=== PATIENT | male | born 1970 | race Caucasian/White ===

== ENCOUNTER 2016-04-26 10:21 | Emergency (ER) | payer SELFPAY ==
[~2016-04-26 10:21] MED LIST: Sodium Chloride Irrig Solution 250 ML BOT ONE
[2016-04-26] MEDS ORDERED: Lidocaine 1% w/Epinephrine 1:100K 20 ML VIAL ONE (10:37)
[2016-04-26] MEDS ORDERED: Acetaminophen/Codeine 30-300mg Tablet ONE (10:51)
--- NOTE | 2016-04-26 12:25 | ERRECORD ---
[facility] EMERGENCY RECORD HPI GENERAL CHIEF COMPLAINT: Patient presents for evaluation of LEFT LOWER LIP SWOLLEN, PAINFUL AND POSSIBLE INFECTION. (11:08 LHOD) HISTORIAN: History provided by patient. (11:08 LHOD) MECHANISM OF INJURY: NONE. (11:11 LHOD) LOCATION: LEFT LOWER LIP. (11:11 LHOD) QUALITY: Pain is sharp in nature, BURNING. (11:11 LHOD) SEVERITY: Maximum severity of symptoms severe, Currently symptoms are severe, Maximum severity of pain rated as 10/10, Current severity of pain rated as 10/10. (11:11 LHOD) TIME COURSE: 4 DAYS AGO PT REPORTS HE HAD A "PIMPLE" ON HIS LEFT LOWER LIP. HE WAS SEEN IN [place] AND STARTED ON 2 ANTIBIOTICS---KEFLEX AND AMOXIL, ALTHOUGH PT REPORTS ALLERGY TO PENICILLEN. DENIES ANY TRAUMA. PAIN AND SWELLING OF LEFT LOWER LIP INCREASING. (11:08 LHOD) ASSOCIATED WITH: Associated with SWELLING OF LEFT LOWER LIP. (11:12 LHOD) ROS (12:40 LHOD) CONSTITUTIONAL: Historian denies fever. ENT: Historian denies dysphagia, denies sore throat. MARKED SWELLING OF LOWER LIP. CARDIOVASCULAR: Historian denies chest pain. RESPIRATORY: Historian denies shortness of breath. GI: Historian denies abdominal pain, denies vomiting. MUSCULOSKELETAL: Historian denies back pain, denies neck pain. SKIN: LEFT LOWER LIP SWELLING / DRAINAGE. NEUROLOGIC: Historian denies headache. HEMO/LYMPHATIC: Historian denies easy bruising. NOTES: All systems reviewed, negative except as described above. PAST MEDICAL HISTORY MEDICAL HISTORY: Flu vaccine not up to date, Tetanus immunization up to date, Date of immunization- 4 or 5 months ago. Pneumococcal vaccine not up to date, MRSA, DEGENERATIVE EYE DISEASE. (10:35 AWAT) Notes: VERIFIED 04-26-16, Flu vaccine not up to date, Tetanus immunization up to date, Date of immunization: 3 YEARS AGO, Pneumococcal vaccine not up to date, No past medical history, No past medical history. (10:44 JPER) MALE SURGICAL HISTORY: SURGERY TO RT ARM. (10:35 AWAT) VERIFIED 04-26-16, SURGERY TO RT ARM. (10:44 JPER) PSYCHIATRIC HISTORY: Notes: DENIES. (10:35 AWAT) Notes: DENIES, Notes: DENIES. (10:44 JPER) SOCIAL HISTORY: Patient denies alcohol use, Patient is a former drug user, abused methamphetamines, Drug history notes: LAST USED 9 MONTHS, Patient currently uses tobacco, smokes cigarettes, daily, Patient smokes 1/2 packs per day, Lives at home, with family. (10:35 AWAT) &a-1R&a+25V*p+0X*b2006E*c202B*c15G*c2P*p-0X&a-25V&a+1R Name: Byron Goodman : 1970 M45 MedRec: [id number] AcctNum: [id number] Prepared: SunApr 26, 2016 12:53 by Interface Page 1 of 3 pMD [facility] EMERGENCY RECORD Social History includes VERIFIED 04-26-16, Patient denies alcohol use, Patient is a former drug user, abused methamphetamines, Drug history notes: LAST USED 9 MONTHS, Patient currently uses tobacco, smokes cigarettes, daily, Patient smokes 1/2 packs per day, Lives at home, with family. 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 (12:46 LHOD) KNOWN ALLERGIES Penicillins: Reaction: Anaphylaxis CURRENT MEDICATIONS Keflex: CAPSULE : Strength - 500 mg : ORAL Patient Dose: 4 times a day. (10:41 AWAT) PT ALSO SAYS HE IS TAKING SOME LEFTOVER AMOXICILLIN (10:43 AWAT) VITAL SIGNS VITAL SIGNS: BP: 140/88, Pulse: 88, Resp: 18, Temp: 98.6 (Tympanic), O2 sat: 96 on Room Air, Time: 04/26/2016 10:30. (10:30 AWAT) BP: 148/95, Pulse: 90, Resp: 18, Temp: 98.6 (Tympanic), O2 sat: 97 on Room Air, Time: 04/26/2016 10:35. (10:35 JPER) BP: 135/83, Pulse: 82, Resp: 16, Temp: 98.6, Pain: 4, O2 sat: 98 on RA, Time: 04/26/2016 12:10. (12:10 AWAT) PHYSICAL EXAM (12:41 LHOD) CONSTITUTIONAL: Vital signs reviewed, Patient afebrile, Pulse normal, Blood pressure normal, Respiratory rate normal, Patient appears in pain, in severe pain distress, Patient alert and oriented to person, place and time. EYES: Pupils equally round and reactive to light, Extraocular muscles intact. ENT: Pharynx exam normal, LOWER LIP WITH LARGE AMOUNT OF SWELLING. LEFT LOWER MUCOSAL 5 MM PROTRUDING WHITE / YELLOW EXUDATE. NECK: Neck exam included findings of normal range of motion, Trachea midline. RESPIRATORY CHEST: Respiratory exam included findings of no respiratory distress, Breath sounds clear. NEURO: Neuro exam findings include patient oriented to person, place and time. SKIN: LOWER LIP WITH MARKED SWELLING . 5MM LEFT LOWER LIP MUCOSAL WHITE / YELLOW EXUDATE. LIP SO TENSELY SWOLLEN UNABLE TO IDENTIFY FLUCTUANCE. MEDICATION ADMINISTRATION SUMMARY Drug Name: clindamycin injection, Dose Ordered: 300 mg, Route: IV Push, Status: Given, Time: 11:08 04/26/2016, &a-1R&a+25V*p+0X*r8314L*c202B*c15G*c2P*p-0X&a-25V&a+1R Name: Byron Goodman : 1970 M45 MedRec: [id number] AcctNum: [id number] Prepared: SunApr 26, 2016 12:53 by Interface Page 2 of 3 pMD [facility] EMERGENCY RECORD Drug Name: Tylenol-Codeine #3, Dose Ordered: 2 tab(s), Route: Oral, Status: Given, Time: 11:00 04/26/2016, Detailed record available in Medication Service section. PROBLEM LIST No recorded problems DIAGNOSIS (11:50 LHOD) FINAL: PRIMARY: LEFT LOWER LIP SUPERFICIAL ABSCESS WITH CELLULITIS. PRESCRIPTION (11:50 LHOD) Cleocin capsule: CAPSULE (HARD, SOFT, ETC.) : 300 mg : ORAL : Quantity: 1 Unit: tab(s) Route: ORAL Schedule: 4 times a day Dispense: 28 May substitute. Refills: No Refills . NOTES: No Refills. Tylenol-Codeine #3: TABLET : 300 mg-30 mg : ORAL : Quantity: 1-2 Unit: tab(s) Route: ORAL Schedule: every 4 hours prn Dispense: 10 May substitute. Refills: No Refills . NOTES: ^s=No Refills No Refills. DISPOSITION PATIENT: Disposition Type: Discharge, Disposition: *Discharge Home, Condition: Good. (11:50 LHOD) Patient left the department. (12:17 AWAT) Ely: AWAT=BHAVNA Carney, Judd JPER=BHAVNA Landry, Yolette LHOD=MD Rancho, Jessika &a-1R&a+25V*p+0X*b1973E*c202B*c15G*c2P*p-0X&a-25V&a+1R Name: MaxineByron : 1970 M45 MedRec: [id number] AcctNum: [id number] Prepared: SunApr 26, 2016 12:53 by Interface Page 3 of 3 pMD MTDD
--- NOTE | 2016-04-26 12:30 | PICIS ---
[facility] EMERGENCY RECORD TRIAGE (10:32 AWAT) TRIAGE NOTES: LOWER LIP INFECTION X 4 DAYS. WAS SEEN IN [place] 2 DAYS AGO & PUT ON ABX X 2, BUT CANNOT RECALL WHAT THEY ARE. HE SAYS IT SEEMS LIKE IT'S GETTING WORSE. (10:32 AWAT) PATIENT: NAME: Byron Goodman, AGE: 45, GENDER: male, : Sat 1970, TIME OF GREET: SunApr 26, 2016 10:22, PREFERRED LANGUAGE: Serbian, ETHNICITY: Not or , ECODE BILLING MAP: [facility], SSN: [id number], Zip Code: [address], KG WEIGHT: 81.65 (est.), PHONE: , , , PERSON ID: [id number], PCP: NONE. (10:32 AWAT) COMPLAINT: LIP BLEEDING. (10:32 AWAT) ADMISSION: URGENCY: 4 Non Urgent, ADMISSION SOURCE: Home, TRANSPORT: Walk-in, BED: ED -05. (10:32 AWAT) ASSESSMENT: Assessment: LOWER LEFT LIP SWOLLEN; OOZING. (10:44 JPER) PAIN: Location UNCOMFORTABLE. (10:44 JPER) SIRS SCORING: Heart Rate 55-109 (0), Temp range 96.8-101.1 (0), respiratory rate 12-24 (0), Mental Status altered: no (0). (10:35 AWAT) IMMUNIZATIONS: Flu vaccine not up to date, Tetanus immunization up to date, Pneumococcal vaccine not up to date. (10:44 JPER) SIRS SCORING: Heart Rate 55-109 (0), Temp range 96.8-101.1 (0), respiratory rate 12-24 (0), Mental Status altered: no (0). (10:44 JPER) TRIAGE SCREENING: Patient denies suicidal ideation, Patient denies presence of domestic violence. (10:44 JPER) PROVIDERS: TRIAGE NURSE: Judd Carney RN. (10:32 AWAT) VITAL SIGNS: BP 140/88, Pulse 88, Resp 18, Temp 98.6, (Tympanic), O2 Sat 96, on Room Air, Time 04/26/2016 10:30. (10:30 AWAT) BP 148/95, Pulse 90, Resp 18, Temp 98.6, (Tympanic), O2 Sat 97, on Room Air, Time 04/26/2016 10:35. (10:35 JPER) PREVIOUS VISIT ALLERGIES: Penicillins. (10:32 AWAT) Penicillins. (10:35 AWAT) Penicillins. (10:44 JPER) KNOWN ALLERGIES Penicillins: Reaction: Anaphylaxis CURRENT MEDICATIONS Keflex: CAPSULE : Strength - 500 mg : ORAL Patient Dose: 4 times a day. (10:41 AWAT) PT ALSO SAYS HE IS TAKING SOME LEFTOVER AMOXICILLIN (10:43 AWAT) VITAL SIGNS VITAL SIGNS: BP: 140/88, Pulse: 88, Resp: 18, Temp: 98.6 (Tympanic), O2 sat: 96 on Room Air, Time: 04/26/2016 10:30. (10:30 AWAT) &a-1R&a+25V*p+0X*o6949S*c202B*c15G*c2P*p-0X&a-25V&a+1R Name: Byron Goodman : 1970 M45 MedRec: [id number] AcctNum: [id number] Prepared: SunApr 26, 2016 12:58 by Interface Page 1 of 7 pMD [facility] EMERGENCY RECORD BP: 148/95, Pulse: 90, Resp: 18, Temp: 98.6 (Tympanic), O2 sat: 97 on Room Air, Time: 04/26/2016 10:35. (10:35 JPER) BP: 135/83, Pulse: 82, Resp: 16, Temp: 98.6, Pain: 4, O2 sat: 98 on RA, Time: 04/26/2016 12:10. (12:10 AWAT) NURSING ASSESSMENT: FOCUSED (10:40 AWAT) CONSTITUTIONAL: Simple assessment performed, Patient arrives ambulatory, Gait steady, History obtained from patient, Patient appears comfortable, Patient cooperative, Patient alert, Oriented to person, place and time, Skin warm, Skin dry, Skin normal in color, Mucous membranes pink, Mucous membranes moist, Patient complains of LOWER LIP INFECTION. PAIN: aching pain, constant, on a scale 0-10 patient rates pain as 10, Pain exacerbated by, palpation, pressure, Nothing has been tried to alleviate the pain. EYES: Focused eye assessment finding include pupils equally round and reactive to light, Left pupil 4 mm in size, Right pupil 4 mm in size. NEURO: Focused neuro assessment findings include patient alert, cooperative, No facial droop noted, Notes: WNL. RESPIRATORY: Focused respiratory assessment findings include breath sounds clear, to bilateral upper lobes, to the right middle lobe, to bilateral lower lobes. ABDOMEN: Focused abdominal assessment findings include abdomen soft, non tender, Bowel sounds present. GENITOURINARY: Focused genitourinary assessment not applicable. MUSCULOSKELETAL: Notes: WNL. LACERATION: Focused laceration assessment not applicable. NOTES: Patient tolerated procedure well, Notes: LOWER LIP SWOLLEN/INFLAMMED, AND A SMALL OPEN AREA NOTED. RECENTLY SEEN IN [place] FOR THIS. SAFETY: Side rails up, Cart/Stretcher in lowest position, Call light within reach, Hospital ID band on, Notes: PT HERE ALONE, BUT SAYS A FRIEND BROUGHT HIM & WILL COME BACK TO GET HIM., Physician notified of above findings. NURSING PROCEDURE: BEDSIDE TESTING (11:10 AWAT) PATIENT IDENTIFIER: Patient actively involved in identification process, Patient's identity verified by patient stating name, Patient's identity verified by patient stating date, Patient's identity verified by hospital ID bracelet. GLUCOSE: Capillary blood sample, Result (mg/dl) 137. FOLLOW-UP: After procedure, results given to Dr. vickers. SAFETY: Side rails up, Cart/Stretcher in lowest position, Call light within reach, Hospital ID band on, Physician notified of above findings. NURSING PROCEDURE: DISCHARGE NOTE (12:10 AWAT) DISCHARGE: Patient discharged to home, ambulating without &a-1R&a+25V*p+0X*d4144X*c202B*c15G*c2P*p-0X&a-25V&a+1R Name: Byron Goodman Armando : 1970 M45 MedRec: [id number] AcctNum: [id number] Prepared: SunApr 26, 2016 12:58 by Interface Page 2 of 7 pMD [facility] EMERGENCY RECORD assistance, family driving, accompanied by other family member, Summary of Care printed/ provided, Patient requested and was provided an electronic copy of Discharge Instructions, Discharge instructions given to patient, Discharge instructions given to NEICE, Simple or moderate discharge teaching performed, by ANTONIO RN, Prescriptions given and instructions on side effects given, Name of prescription(s) given: TYLENOL W CDN, CLEOCIN, Above person(s) verbalized understanding of discharge instructions and follow-up care, Patient discharged by, ANTONIO RN, Patient treated and evaluated by physician. BELONGINGS: Belongings remain with patient, Valuables remain with patient. NOTES: Patient tolerated procedure well. SAFETY: Side rails up, Cart/Stretcher in lowest position, Family at bedside, Call light within reach, Hospital ID band on, Physician notified of above findings. VITAL SIGNS: BP: 135, / 83, Pulse: 82, Resp: 16, Temp: 98.6, Pain: 4, O2 sat: 98, on: RA, Time: 1210. NURSING PROCEDURE: IV PATIENT IDENITIFIER: Patient actively involved in identification process, Patient's identity verified by patient stating name, Patient's identity verified by patient stating date, Patient's identity verified by hospital ID bracelet. (11:05 AWAT) IV SITE 1: IV therapy indicated for medication administration, IV established, to the left hand, using a 20 gauge catheter, in three attempts, IV site prepped with chloraprep, Saline lock established, Flushed with normal saline (mls): 10. (11:05 AWAT) FOLLOW-UP SITE 1: After procedure, sterile transparent dressing applied. (11:05 AWAT) After procedure, 2x2 dressing applied, IV discontinued, due to patient being discharged, catheter intact. (12:00 AWAT) NOTES: Patient tolerated procedure well. (11:05 AWAT) SAFETY: Side rails up, Cart/Stretcher in lowest position, Call light within reach, Hospital ID band on, Physician notified of above findings. (11:05 AWAT) ORDER DETAILS Order Name: Accucheck, Status: Done, Time: 11:15 04/26/2016, User: JUANA, - Ordered for: MD Vickers Lefayne, - Entered by: MD Vickers Lefayne - SunApr 26, 2016 10:49, - Quantity: 1, Order Name: DRESSING APPLICATION/CHANGE, Status: Done, Time: 12:02 04/26/2016, User: AWAT, - Ordered for: MD Vickers Lefayne, - Entered by: MD Vickers Lefayne - SunApr 26, 2016 11:49, - Quantity: 1, Order Name: SALINE LOCK, Status: Done, Time: 11:15 04/26/2016, User: &a-1R&a+25V*p+0X*f7063Q*c202B*c15G*c2P*p-0X&a-25V&a+1R Name: Byron Goodman : 1970 M45 MedRec: [id number] AcctNum: [id number] Prepared: SunApr 26, 2016 12:58 by Interface Page 3 of 7 pMD [facility] EMERGENCY RECORD AWAT, - Ordered for: MD Vickers Lefayne, - Entered by: MD Vickers Lefayne - SunApr 26, 2016 10:48, - Quantity: 1. MEDICATION ADMINISTRATION SUMMARY Drug Name: clindamycin injection, Dose Ordered: 300 mg, Route: IV Push, Status: Given, Time: 11:08 04/26/2016, Drug Name: Tylenol-Codeine #3, Dose Ordered: 2 tab(s), Route: Oral, Status: Given, Time: 11:00 04/26/2016, Detailed record available in Medication Service section. MEDICATION SERVICE clindamycin injection: Order: clindamycin injection (clindamycin phosphate) - Dose: 300 mg : IV Push Ordered by: Jessika Vickers MD Entered by: Jessika Vickers MD SunApr 26, 2016 10:48 , Acknowledged by: Judd Carney RN SunApr 26, 2016 10:50 Documented as given by: Judd Carney RN SunApr 26, 2016 11:08 Patient, Medication, Dose, Route and Time verified prior to administration. Amount given: 300mg, IV SITE #1 IV fluids established for hydration, IV SITE #1 1st bag hung, amount 50ml hung, via primary tubing, IV SITE #1 on IV pump, Catheter placement confirmed via flush prior to administration, IV site without signs or symptoms of infiltration during medication administration, No swelling during administration, No drainage during administration, IV flushed after administration, Correct patient, time, route, dose and medication confirmed prior to administration, Patient advised of actions and side-effects prior to administration, Allergies confirmed and medications reviewed prior to administration, Administered by antonoi rn, Patient in position of comfort, Side rails up, Cart in lowest position. : Follow Up : Response assessment performed, No signs or symptoms of allergic reaction noted, Site inspection shows, No swelling at administration site, No drainage at administration site, No bleeding at site, No bruising noted at site, _IV SITE #1:_, Medication infusion discontinued, on SunApr 26, 2016 11:30, 25 minutes, ., Total amount infused: 300MG, IV Line flushed after administration, Advised not to ambulate without assistance, Patient in position of comfort, Side rails up, Cart in lowest position. (11:35 AWAT) Tylenol-Codeine #3: Order: Tylenol-Codeine #3 (acetaminophen/codeine phosphate) - Dose: 2 tab(s) : Oral Ordered by: Jessika Vickers MD Entered by: Jessika Vickers MD SunApr 26, 2016 10:49 , Acknowledged by: Judd Carney RN SunApr 26, 2016 10:50 Documented as given by: Judd Carney RN SunApr 26, 2016 11:00 Patient, Medication, Dose, Route and Time verified prior to administration. &a-1R&a+25V*p+0X*m9083S*c202B*c15G*c2P*p-0X&a-25V&a+1R Name: Byron Goodman : 1970 M45 MedRec: [id number] AcctNum: [id number] Prepared: SunApr 26, 2016 12:58 by Interface Page 4 of 7 pMD [facility] EMERGENCY RECORD Amount given: 2 tabs, Site: Medication administered P.O., Correct patient, time, route, dose and medication confirmed prior to administration, Patient advised of actions and side-effects prior to administration, Allergies confirmed and medications reviewed prior to administration, Administered by antonio godinez, Patient in position of comfort, Side rails up, Cart in lowest position, Family at bedside. HPI GENERAL CHIEF COMPLAINT: Patient presents for evaluation of LEFT LOWER LIP SWOLLEN, PAINFUL AND POSSIBLE INFECTION. (11:08 LHOD) HISTORIAN: History provided by patient. (11:08 LHOD) MECHANISM OF INJURY: NONE. (11:11 LHOD) LOCATION: LEFT LOWER LIP. (11:11 LHOD) QUALITY: Pain is sharp in nature, BURNING. (11:11 LHOD) SEVERITY: Maximum severity of symptoms severe, Currently symptoms are severe, Maximum severity of pain rated as 10/10, Current severity of pain rated as 10/10. (11:11 LHOD) TIME COURSE: 4 DAYS AGO PT REPORTS HE HAD A "PIMPLE" ON HIS LEFT LOWER LIP. HE WAS SEEN IN [place] AND STARTED ON 2 ANTIBIOTICS---KEFLEX AND AMOXIL, ALTHOUGH PT REPORTS ALLERGY TO PENICILLEN. DENIES ANY TRAUMA. PAIN AND SWELLING OF LEFT LOWER LIP INCREASING. (11:08 LHOD) ASSOCIATED WITH: Associated with SWELLING OF LEFT LOWER LIP. (11:12 LHOD) ROS (12:40 LHOD) CONSTITUTIONAL: Historian denies fever. ENT: Historian denies dysphagia, denies sore throat. MARKED SWELLING OF LOWER LIP. CARDIOVASCULAR: Historian denies chest pain. RESPIRATORY: Historian denies shortness of breath. GI: Historian denies abdominal pain, denies vomiting. MUSCULOSKELETAL: Historian denies back pain, denies neck pain. SKIN: LEFT LOWER LIP SWELLING / DRAINAGE. NEUROLOGIC: Historian denies headache. HEMO/LYMPHATIC: Historian denies easy bruising. NOTES: All systems reviewed, negative except as described above. PAST MEDICAL HISTORY MEDICAL HISTORY: Flu vaccine not up to date, Tetanus immunization up to date, Date of immunization- 4 or 5 months ago. Pneumococcal vaccine not up to date, MRSA, DEGENERATIVE EYE DISEASE. (10:35 AWAT) Notes: VERIFIED 04-26-16, Flu vaccine not up to date, Tetanus immunization up to date, Date of immunization: 3 YEARS AGO, Pneumococcal vaccine not up to date, No past medical history, No past medical history. (10:44 JPER) MALE SURGICAL HISTORY: SURGERY TO RT ARM. (10:35 AWAT) VERIFIED 04-26-16, SURGERY TO RT ARM. (10:44 JPER) &a-1R&a+25V*p+0X*n0725U*c202B*c15G*c2P*p-0X&a-25V&a+1R Name: Byron Goodman : 1970 M45 MedRec: [id number] AcctNum: [id number] Prepared: SunApr 26, 2016 12:58 by Interface Page 5 of 7 pMD [facility] EMERGENCY RECORD PSYCHIATRIC HISTORY: Notes: DENIES. (10:35 AWAT) Notes: DENIES, Notes: DENIES. (10:44 JPER) SOCIAL HISTORY: Patient denies alcohol use, Patient is a former drug user, abused methamphetamines, Drug history notes: LAST USED 9 MONTHS, Patient currently uses tobacco, smokes cigarettes, daily, Patient smokes 1/2 packs per day, Lives at home, with family. (10:35 AWAT) Social History includes VERIFIED 04-26-16, Patient denies alcohol use, Patient is a former drug user, abused methamphetamines, Drug history notes: LAST USED 9 MONTHS, Patient currently uses tobacco, smokes cigarettes, daily, Patient smokes 1/2 packs per day, Lives at home, with family. 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 (12:46 LHOD) PHYSICAL EXAM (12:41 LHOD) CONSTITUTIONAL: Vital signs reviewed, Patient afebrile, Pulse normal, Blood pressure normal, Respiratory rate normal, Patient appears in pain, in severe pain distress, Patient alert and oriented to person, place and time. EYES: Pupils equally round and reactive to light, Extraocular muscles intact. ENT: Pharynx exam normal, LOWER LIP WITH LARGE AMOUNT OF SWELLING. LEFT LOWER MUCOSAL 5 MM PROTRUDING WHITE / YELLOW EXUDATE. NECK: Neck exam included findings of normal range of motion, Trachea midline. RESPIRATORY CHEST: Respiratory exam included findings of no respiratory distress, Breath sounds clear. NEURO: Neuro exam findings include patient oriented to person, place and time. SKIN: LOWER LIP WITH MARKED SWELLING . 5MM LEFT LOWER LIP MUCOSAL WHITE / YELLOW EXUDATE. LIP SO TENSELY SWOLLEN UNABLE TO IDENTIFY FLUCTUANCE. EVENTS TRANSFER: Triage to Emergency Main ED -05. (10:33 AWAT) Removed from Emergency Main ED -05. (12:17 AWAT) INCISION AND DRAINAGE (12:47 LHOD) INCISION AND DRAINAGE: Side and/or site verified, Verbal consent obtained, Incision and drainage indicated for cutaneous abscess, 1% Lidocaine with epinephrine used, 2 mLs, Incision and drainage of mouth abscess, Incision was made over area of fluctuance, Explored for loculations, Drained blood, 11 SCALPEL TO MAKE 5 MM INCISION OVER AREA OF DRAINAGE. ONLY SMALL AMOUNT OF BLOOD DRAINED. PROBED FOR LOCULATION, BUT NO PURULENT DISCHARGE. NO PACKING REQUIRED. PROBLEM LIST No recorded problems &a-1R&a+25V*p+0X*v3899I*c202B*c15G*c2P*p-0X&a-25V&a+1R Name: Byron Goodman : 1970 M45 MedRec: [id number] AcctNum: [id number] Prepared: SunApr 26, 2016 12:58 by Interface Page 6 of 7 pMD [facility] EMERGENCY RECORD DIAGNOSIS (11:50 LHOD) FINAL: PRIMARY: LEFT LOWER LIP SUPERFICIAL ABSCESS WITH CELLULITIS. DISPOSITION PATIENT: Disposition Type: Discharge, Disposition: *Discharge Home, Condition: Good. (11:50 LHOD) Patient left the department. (12:17 AWAT) INSTRUCTION (11:51 LHOD) DISCHARGE: FACIAL CELLULITIS. FOLLOWUP: Follow up with Primary Care Physician in 1-2 days. SPECIAL: MAY COMPLETE KEFLEX. FOLLOW UP WITH YOUR PRIMARY DOCTOR OR ORAL SURGEON IN1-2 DAYS. *RETURN IF WORSE. PRESCRIPTION (11:50 LHOD) Cleocin capsule: CAPSULE (HARD, SOFT, ETC.) : 300 mg : ORAL : Quantity: 1 Unit: tab(s) Route: ORAL Schedule: 4 times a day Dispense: 28 May substitute. Refills: No Refills . NOTES: No Refills. Tylenol-Codeine #3: TABLET : 300 mg-30 mg : ORAL : Quantity: 1-2 Unit: tab(s) Route: ORAL Schedule: every 4 hours prn Dispense: 10 May substitute. Refills: No Refills . NOTES: ^s=No Refills No Refills. IMAGING (12:13 AWAT) *SUPPLY CHARGE SHEET: Image captured from scanner. *DISCHARGE INSTRUCTIONS RECEIPT: Image captured from scanner. ADMIN (12:49 LHOD) DIGITAL SIGNATURE: MD Vickers Lefayne. RESULTS (11:29 LHOD) LABORATORY: [facility] DT: SunApr 26, 2016 11:15, *Accuc[facility]k 137 - H mg/dL, Range (70-110). Ely: AWAT=BHAVNA Carney, Judd JPER=BHAVNA Landry, Yolette LHOD=MD Rancho, Jessika &a-1R&a+25V*p+0X*a1986Y*c202B*c15G*c2P*p-0X&a-25V&a+1R Name: Byron Goodman : 1970 M45 MedRec: [id number] AcctNum: [id number] Prepared: SunApr 26, 2016 12:58 by Interface Page 7 of 7 pMD MTDD
== END 2016-04-26 12:10 | disposition home or self-care (01) ==
LOC: MADERS 10:21
DX: K13.0 Diseases of lips (principal); F17.210 Nicotine dependence, cigarettes, uncomplicated
CPT/HCPCS: 36416; 40800; 96365; J2001; J3490

== ENCOUNTER 2017-01-23 15:53 | Emergency (ER) | payer MEDICAID, SELFPAY | END 2017-01-23 17:45 | disposition home or self-care (01) | LOC: MADERS 15:53 | DX: K62.89 Other specified diseases of anus and rectum (principal); F17.210 Nicotine dependence, cigarettes, uncomplicated | CPT/HCPCS: 99283 ==

== ENCOUNTER 2017-08-12 10:21 | Emergency (ER) | payer MEDICAID, OTHER | END 2017-08-12 11:35 | disposition home or self-care (01) | LOC: MADERS 10:21 | DX: K11.5 Sialolithiasis (principal); F17.210 Nicotine dependence, cigarettes, uncomplicated | CPT/HCPCS: 99283 ==

== ENCOUNTER 2017-08-20 09:16 | Emergency (ER) | payer OTHER ==
[2017-08-20] MEDS ORDERED: Ibuprofen 800 MG TAB ONE (10:01)
[2017-08-20] MEDS ORDERED: HYDROcodone/Acetaminophen 5/325 mg Tablet ONE (10:01)
--- NOTE | 2017-08-20 10:16 | RAD ---
THREE VIEWS LEFT ANKLE: Date: 08-20-17 History: Left ankle injury. Comparison: 10-17-13 FINDINGS: Ankle mortise is congruent. There is no fracture or dislocation involving the left ankle. There is pr ominent subcutaneous soft tissue swelling seen at the medial aspect of the left ankle. IMPRESSION: Subcutaneous soft tissue swelling medially, but no acute osseous abnormality or fracture is seen invo lving the left ankle. POS: [facility]
[2017-08-20] MEDS ORDERED: Bacitracin Zinc 1 Packet ONE (10:38)
== END 2017-08-20 10:07 | disposition home or self-care (01) ==
LOC: MADERS 09:16
DX: S93.402A Sprain of unspecified ligament of left ankle, initial encounter (principal); F17.210 Nicotine dependence, cigarettes, uncomplicated; X58.XXXA Exposure to other specified factors, initial encounter

== ENCOUNTER 2017-08-22 20:01 | Emergency (ER) | payer OTHER ==
[2017-08-22] MEDS ORDERED: Morphine 10 MG/ML VIAL ONE (20:39)
--- NOTE | 2017-08-22 21:03 | RAD ---
LEFT ANKLE RADIOGRAPHS THREE VIEWS: 08/22/2017 PROVIDED CLINICAL HISTORY: Left ankle pain and swelling. COMPARISON: 08/20/2017 FINDINGS: There is no evidence for fracture or other acute osseous abnormality. Alignment appears anatomic. J oint space appear preserved. There is nonspecific medial malleolar soft tissue swelling. IMPRESSION: No evidence for an acute osseous abnormality. Nonspecific medial malleolar soft tissue prominence. POS: [facility]
[2017-08-22] MEDS ORDERED: Sulfameth/Trimethoprim DS 800-160mg TAB ONE (21:14)
== END 2017-08-22 21:24 | disposition home or self-care (01) ==
LOC: MADERS 20:01
DX: S93.402A Sprain of unspecified ligament of left ankle, initial encounter (principal); F17.210 Nicotine dependence, cigarettes, uncomplicated; W18.42XA Slipping, tripping and stumbling without falling due to stepping into hole or opening, initial encounter
CPT/HCPCS: J2270

== ENCOUNTER 2017-08-25 11:42 | Emergency (ER) | payer OTHER | END 2017-08-25 12:15 | disposition home or self-care (01) | LOC: MADERS 11:42 | DX: S93.422A Sprain of deltoid ligament of left ankle, initial encounter (principal); F17.210 Nicotine dependence, cigarettes, uncomplicated; X58.XXXA Exposure to other specified factors, initial encounter | CPT/HCPCS: 99283 ==

== ENCOUNTER 2017-09-16 21:42 | Emergency (ER) | payer OTHER | END 2017-09-16 21:55 | disposition left against medical advice (07) | LOC: MADERS 21:42 | DX: Z53.21 Procedure and treatment not carried out due to patient leaving prior to being seen by health care provider (principal) ==

== ENCOUNTER 2018-05-31 11:17 | Emergency (ER) | payer MEDICARE, OTHER ==
--- NOTE | 2018-05-31 12:35 | RAD ---
2 VIEW CHEST: Date: 05/31/18 HISTORY: Cough. FINDINGS: Lungs appear clear with no definite infiltrate. Heart and mediastinum unremarkable. Osseous structure s unremarkable. IMPRESSION: No evidence of infiltrate. POS: [facility]
== END 2018-05-31 12:52 | disposition home or self-care (01) ==
LOC: MADERS 11:17
DX: J06.9 Acute upper respiratory infection, unspecified (principal); Z71.6 Tobacco abuse counseling; J44.9 Chronic obstructive pulmonary disease, unspecified; F17.210 Nicotine dependence, cigarettes, uncomplicated
CPT/HCPCS: 71046; 87804; 99406

== ENCOUNTER 2020-11-30 08:30 | Emergency (ER) | payer MEDICARE, OTHER | END 2020-11-30 09:45 | disposition left against medical advice (07) | LOC: MADERS 08:30 | DX: K62.89 Other specified diseases of anus and rectum (principal); J44.9 Chronic obstructive pulmonary disease, unspecified; F17.210 Nicotine dependence, cigarettes, uncomplicated | CPT/HCPCS: 99283 ==

== ENCOUNTER 2021-05-22 22:16 | Emergency (ER) | payer MEDICARE, OTHER | END 2021-05-22 23:18 | disposition left against medical advice (07) | LOC: MADERS 22:16 | DX: Z53.21 Procedure and treatment not carried out due to patient leaving prior to being seen by health care provider (principal) ==

== ENCOUNTER 2021-05-25 12:04 | Emergency (ER) | payer MEDICARE, OTHER ==
[2021-05-25] MEDS ORDERED: Sulfameth/Trimethoprim DS 800-160mg TAB ONE (13:09)
== END 2021-05-25 13:20 | disposition home or self-care (01) ==
LOC: MADERS 12:04
DX: L02.411 Cutaneous abscess of right axilla (principal); F17.210 Nicotine dependence, cigarettes, uncomplicated
CPT/HCPCS: 99283

== ENCOUNTER 2022-04-09 10:19 | Emergency (ER) | payer OTHER ==
[~2022-04-09 10:19] MED LIST changes: +Iopamidol 370 76% 100 ML VIAL ONE; -Sodium Chloride Irrig Solution 250 ML BOT ONE
[2022-04-09] MEDS ORDERED: cefTRIAXone\\ROCEPHIN 2 GM VIAL ONE (11:27)
[2022-04-09] MEDS ORDERED: Sodium Chloride 0.9% 100 ML ONE (11:27)
[2022-04-09] MEDS ORDERED: Sodium Chloride 0.9% 1,000 ML ONE (11:27)
[2022-04-09 11:50] LABS: #Basophils 0.4 thou/uL (0.0-0.2); #Eosinphils 0.3 thou/uL (0.0-0.7); #Monocytes 1.3 thou/uL (0.11-0.59); #Neutrophils 12.5 thou/uL (1.40-6.50); %Basophils 2.5 % (0.0-1.0); %Eosinophils 1.9 % (0.0-10.0); %Lymphocytes 11.9 % (21.0-51.0); %Monocytes 7.6 % (0.0-10.0); %Neutrophils 76.2 % (42.0-75.0); Hemoglobin 17.9 g/dL (14.0-18.0); Mean Corpuscular HGB CONC 32.4 g/dL (32.0-36.0); Mean Corpuscular Hemoglobin 28.9 pg (27.0-31.0); Mean Corpuscular Volume 89.2 fl (78.0-98.0); Mean Platelet Volume 7.6 fL (7.4-10.4); Platelet Count 332 10x3/uL (130-400); Red Blood Cell (RBC) Count 6.21 mill/uL (4.70-6.10); White Blood Cell (WBC) Count 16.5 10x3/uL (4.8-10.8)
[2022-04-09] MEDS ORDERED: Sodium Chloride 0.9% 250 ML 250 ML ONE (11:53)
[2022-04-09] MEDS ORDERED: Vancomycin 1 GM VIAL ONE (11:53)
[2022-04-09 12:00] LABS: Prothrombin Time 13.3 sec (12.0-14.7)
[2022-04-09 12:01] LABS: D-Dimer Test 0.94 *mcg/mL (0.27-0.43)
[2022-04-09 12:05] LABS: ALT (SGPT) 15 U/L (8-55); AST (SGOT) 11 U/L (5-34); Albumin 3.9 g/dL (3.5-5.0); Alkaline Phosphatase 92 U/L (40-110); Anion Gap 16 mmol/L (10-20); BUN (Urea Nitrogen) 14 mg/dL (8.9-20.6); Bilirubin, Total 0.5 mg/dL (0.2-1.2); Calc. Creatinine Clearance 0 mL/min (70-130); Calcium 9.4 mg/dL (7.8-10.44); Carbon Dioxide 23 mmol/L (22-29); Chloride 100 mmol/L (98-107); Estimated GFR 103; Globulin 4.1 g/dL (2.4-3.5); Glucose 108 mg/dL (70-105); Potassium 4.9 mmol/L (3.5-5.1); Sodium 134 mmol/L (136-145)
== END 2022-04-09 13:26 | disposition left against medical advice (07) ==
LOC: MADERS 10:19
DX: L03.115 Cellulitis of right lower limb (principal); F19.10 Other psychoactive substance abuse, uncomplicated; F17.210 Nicotine dependence, cigarettes, uncomplicated
CPT/HCPCS: 36415; 80053; 83605; 85025; 85379; 85610; 86140; 87040; 96365; 96367; J0696; J3370; J3490; J7050; Q9967

== ENCOUNTER 2023-03-01 23:12 | Emergency (ER) | payer OTHER | END 2023-03-02 00:56 | disposition home or self-care (01) | LOC: MADERS 23:12 | DX: M72.9 Fibroblastic disorder, unspecified (principal); J44.9 Chronic obstructive pulmonary disease, unspecified; F17.210 Nicotine dependence, cigarettes, uncomplicated | CPT/HCPCS: 99283 ==